=== PATIENT | female | born 1950 | race Caucasian/White ===

== ENCOUNTER → 2019-01-16 | Emergency (ER) | payer OTHER ==
[~2019-01-16] VITALS: Ht 157.5 cm; Wt 63.5 kg
[~2019-01-16] MED LIST: ASPIR 8181 MG; METFORMIN HCL1000 M2; ZESTRIL20 MG; ZOHYDRO ER50 MG
== END | disposition left against medical advice (07) ==
LOC: ER 20:12
DX: Z53.20 Procedure and treatment not carried out because of patient's decision for unspecified reasons (principal)